=== PATIENT | female | born 1945 | race Caucasian/White ===

== ENCOUNTER 2022-10-15 09:03 | Day surgery (SDC) | payer MEDICARE, SELFPAY ==
[2022-10-15 09:15] VITALS: BP 158/74; PULSE 66; RESP 18; TEMP 36.7; O2SAT 97
--- NOTE | 2022-10-15 09:23 | ANES.PREOP_ITS ---
General Info Date of Service Date Performed: 10/15/22 Height: 5 ft 5 in Weight: 99.79 kg Body Mass Index (BMI): 36.6 Surgical Procedure: Operation Date: 10/15/22 11:40 Proposed Procedure Side Surgeon p Cataract Extraction with IOL Implant Right Roland Reed MD Meds Allergies and Home Medications Allergies Allergy/AdvReac Type Severity Reaction Status Date / Time amoxicillin Allergy Intermediate Skin Rash Unverified 10/13/22 14:52 amlodipine Allergy Unknown Unknown Unverified 10/14/22 12:19 azithromycin Allergy Unknown Unknown Unverified 10/14/22 12:19 gabapentin Allergy Unknown Unknown Unverified 10/14/22 12:19 hydrochlorothiazide Allergy Unknown Unknown Unverified 10/14/22 12:19 milk Allergy Unknown Unknown Unverified 10/14/22 12:19 mirabegron Allergy Unknown Unknown Unverified 10/14/22 12:19 Penicillins Allergy Unknown Unknown Unverified 10/14/22 12:19 Sulfa (Sulfonamide Allergy Unknown Unknown Unverified 10/14/22 12:19 Antibiotics) sulfamethoxazole Allergy Unknown Unknown Unverified 10/14/22 12:19 [From Sulfamethoxazole-Trimethoprim] tramadol Allergy Unverified 10/13/22 14:52 trimethoprim Allergy Unverified 10/13/22 14:52 [From Sulfamethoxazole-Trimethoprim] codeine AdvReac Intermediate Nausea Unverified 10/13/22 14:52 Home Medication Medication Instructions Recorded calcium carbonate 600 mg calcium 600 mg PO DIRECTED 10/13/22 (1,500 mg) tablet (Super Calcium) cetirizine 10 mg tablet 10 mg PO DAILY 10/13/22 fluticasone propionate 50 2 spray intranasal DAILY 10/13/22 mcg/actuation nasal spray,suspension lisinopril 40 mg tablet 40 mg PO DAILY 10/13/22 ropinirole 0.25 mg tablet 25 mg PO DIRECTED 10/13/22 rosuvastatin 5 mg tablet 5 mg PO DAILY 10/13/22 sertraline 50 mg tablet 50 mg PO DAILY 10/13/22 Current Visit Medications: Current Medications Generic Name Dose Route Start Last Admin Trade Name Freq PRN Reason Stop Dose Admin Acetaminophen 1,000 mg 10/15/22 06:00 Acetaminophen 500 Mg Tab PO 11/14/22 05:59 Q4H PRN PRN Balanced Salt Solution 500 ml 10/15/22 06:00 Balanced Salt Soln.-Plus 500 Ml Bag OP 11/14/22 05:59 DIRECTED [facility] Miscellaneous Medication 0 ml 10/15/22 06:00 Prednisolone 1%, Moxifloxacin 0.5%, Nepafenac 0.1% 5ml Btl OD 11/14/22 05:59 DIRECTED [facility] Miscellaneous Medication 0 ml 10/15/22 06:00 Tropicam./Phenyleph. 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 Diverticular disease Essential tremor CAROLANN (generalized anxiety disorder) HLD (hyperlipidemia) Hx of malignant neoplasm of uterine body Hypertensive disorder Insomnia Left sided sciatica Low back pain Neck pain Obesity Pain of right hip joint Piriformis syndrome of right side Prediabetes RLS (restless legs syndrome) Senile hyperkeratosis Spinal stenosis of lumbar region Thoracic back pain Tinnitus of left ear Surgical History Surgical History History of hysteroscopy History of spinal surgery Hx of colonoscopy Hx of hysterectomy Tobacco Smoking/Tobacco Use Status: Never Alcohol Alcohol Intake: never Substance Use Substance use: Never Substance use type: does not use Vital Signs and Lab Results Lab Results Blood Type / Crossmatch: No Data to Display Complete Blood Count: No Data to Display Complete Metabolic Panel: No Data to Display Liver Function Panel: No Data to Display Coagulation Panel: No Data to Display Cardiac Panel: No Data to Display Arterial Blood Gas: No Data to Display Venous Blood Gas: No Data to Display Pancreas Panel: No Data to Display Thyroid Panel: No Data to Display Infectious Disease: No Data to Display Blood Cultures: No Data to Display Toxicology Panel: No Data to Display Anesthesia Assessment and Plan Anesthesia History Personal History: No History of Anesthesia Complications Family History: No Family History of Anesthesia Complications Exercise Tolerance Exercise Tolerance: Metabolic Equivalents>4 Pertinent Negatives Pertinent Negatives: No Symptoms of GERD Cardiac & Pulmonary Exam Cardiac Exam: Normal S1/S2 Heart Sounds Pulmonary Exam: Clear Bilateral Breath Sounds Implantable Cardiac Device Does patient have a Pacemaker or an ICD?: No Airway Exam Known Difficult Airway: No Mallampati Class: 3 Mouth Opening: Normal (> 3cm) Thyromental Distance: Greater than 3 cm Neck Range of Motion: Full ROM Neck Circumference: Normal Teeth Condition: Normal Dentition ASA Classification ASA Score: ASA 2 Emergency Case?: No NPO Status NPO Status: NPO Clears >2 hours, Solids >8 hours Anesthesia Plan Resuscitation Status: Full Code Anesthesia Technique: MAC Anesthesia Airway Planned: Natural Airway Monitors Used: Standard Monitors
[2022-10-15 09:25] VITALS: BMI 36.6
[2022-10-15] MEDS: Tropicam./Phenyleph. (1/2.5%) 5 ML BTL OD ×3 (09:35→09:50)
[2022-10-15] MEDS: Balanced Salt Soln.-PLUS 500 ML BAG OP (10:09)
[2022-10-15] MEDS: Tetracaine 0.5% 4 ML BTL OD (10:10)
[2022-10-15] MEDS: Lidocaine 1% Pres-Free 5 ML VIAL (10:10)
[2022-10-15] MEDS: Duovisc Viscoelastic System EACH 1 EACH (10:11)
[2022-10-15] MEDS: Phenylephrine/Lidocaine (15/10) MG/ML 1 ML VIAL (10:12)
[2022-10-15] MEDS: Povidone-Iodine Ophth 30 ML BTL (10:13)
[2022-10-15 10:31] VITALS: BP 142/70; PULSE 60; RESP 20; TEMP 36.3; O2SAT 97
--- NOTE | 2022-10-15 10:32 | W.PM.DSUDISC ---
Date of service: 10/15/22 Time of Service: 10:32 Discharge Plan Disposition Patient Disposition: Home Discharge Details Attending Provider: Roland Reed Primary Care Provider: Alexa Reece Home Meds and New Rx's Prescriptions: No Action cetirizine 10 mg tablet 10 mg PO DAILY Patient Comments: TAKE ONE TABLET BY MOUTH EVERY DAY calcium carbonate [Super Calcium] 600 mg calcium (1,500 mg) Tablet 600 mg PO DIRECTED ropinirole 0.25 mg tablet 25 mg PO DIRECTED Patient Comments: TAKE ONE TABLET BY MOUTH THREE TIMES A DAY lisinopril 40 mg tablet 40 mg PO DAILY Patient Comments: TAKE ONE TABLET BY MOUTH EVERY DAY fluticasone propionate 50 mcg/actuation spray,suspension 2 spray INTRANASAL DAILY Patient Comments: SPRAY TWO SPRAYS IN EACH NOSTRIL TWICE A DAY sertraline 50 mg tablet 50 mg PO DAILY Patient Comments: TAKE ONE TABLET BY MOUTH EVERY DAY rosuvastatin 5 mg tablet 5 mg PO DAILY Patient Comments: TAKE ONE TABLET BY MOUTH EVERY DAY Discharge Instructions Stand Alone Forms: Post-op Topical Cataract, Isra Fuchs ([facility]) Discharge Orders Discharge Orders: Discharge Order (Routine); Ordered 10/15/22 Ordered By: Roland Reed DS: Diagnosis Discharge Diagnosis (1) Cortical age-related cataract, right eye: Status: Resolved (2) Nuclear age-related cataract, right eye: Status: Resolved
--- NOTE | 2022-10-15 10:33 | W.PM.OP ---
Date of service: 10/15/22 Time of Service: 10:33 Operative Note Operative Note DATE OF PROCEDURE: 10/15/22 PRE-OP DIAGNOSIS: Nuclear/cortical cataract, right eye POST-OP DIAGNOSIS: same PROCEDURE: Cataract extraction using phacoemulsification with intraocular lens implant, right eye SURGEON: Roland Reed ANESTHESIA TYPE: Local By Surgeon and MAC Refer to Anesthesia Record ESTIMATED BLOOD LOSS: 0 PATHOLOGY: none sent COMPLICATIONS: None Patient was transported to: same day Patient's condition: stable Implants: You Clareon [id number] Indications: Progressive decreased vision due to cataract, right eye Procedure Description: CATARACT SURGERY OPERATIVE REPORT PREOPERATIVE DIAGNOSIS: Nuclear/cortical cataract, right eye POSTOPERATIVE DIAGNOSIS: Same OPERATION: Cataract extraction using phacoemulsification with posterior chamber intraocular lens implant, right eye. IOL: IOL Blasting Helper/Model: You Clareon [id number] IOL Power: + 17.5 diopters IOL Serial Number: [id number] Optic Diameter: 6.0mm Haptic/Overall Diameter: 13.0mm PHACO INFO: [employer]urion Vision System with OZil and Active Fluidics Cumulative Dispersed Energy (CDE): 6.99 seconds SURGEON: Roland Reed MD, SOLITARIO ANESTHESIA: Monitored Anesthesia Care (MAC), with local sub-tenon's anesthetic infiltration COMPLICATIONS: None SPECIMENS: None INDICATIONS FOR PROCEDURE: Patient is a 77-year-old lady with history of diminished visual acuity in her right eye secondary to the development of nuclear/cortical cataract. She is significantly symptomatic that she desires cataract surgery and attempt to improve and maximize her vision. The option of cataract surgery was offered to the patient and she wished to proceed. See office notes for detailed information. PROCEDURE: The correct surgical eye was identified and marked as the right eye and the pupil was dilated in the preoperative area using mydriatics and cycloplegics. The dilated pupil size was 6.0 mm. Oral sedation was administered in the form of an Imprimis MKO Melt (midazolam 3mg/ketamine 25mg/ondansetron 2mg). The patient was brought to the operating room where cardiopulmonary monitoring was instituted and surgical time-out was performed, confirming the correct operative eye and IOL power. Topical anesthesia was administered and ophthalmic povidone-iodine 5% was instilled into the conjunctival fornices. The amanda-ocular area was prepped with Betadine 10% solution and draped in the usual sterile fashion for intraocular surgery, including an aperture drape. A Tegaderm transparent film dressing was cut in half and used to cover the lashes and lid margins. Care was taken to sequester the lashes and lid margins under the Tegaderm dressing. A lid speculum was placed between the lids of the operative eye and the Ciara-Manjit operating microscope was maneuvered into position. Lyndsay scissors were then used to make a conjunctival buttonhole approximately 6mm posterior to the limbus in the inferonasal quadrant. Blunt dissection was carried out to expose bare sclera, and a blunt-tipped sub-tenon?s anesthesia cannula was introduced and passed posteriorly along the globe where non-preserved plain lidocaine was injected into posterior sub-Tenon?s space. A sideport knife was used to make a paracentesis port. Intraocular phenylephrine/lidocaine was injected into the anterior chamber. The anterior chamber was then filled with viscoelastic. A keratome knife was used to construct a two--plane clear corneal tunnel extending 2.0mm into clear cornea. A flap was raised on the anterior capsule and capsulorhexis forceps were used to complete a continuous curvilinear capsulorhexis of 5.5 mm. Balanced salt solution was then used to perform cortical cleaving hydrodissection and nuclear hydrodelineation until the lens could be freely rotated within the capsular bag. The lens nucleus was then disassembled and removed within the capsular bag and iris plane using phacoemulsification. Residual cortical material was removed using the I/A handpiece. The posterior capsule was carefully polished to remove as much residual lens epithelial cells as safely possible. The capsular bag was then inflated and the anterior chamber deepened with cohesive viscoelastic. The lens implant described above was inserted into the capsular bag using the You Autonome Injector. A Kuglen hook was used to dial the IOL into position. Residual viscoelastic was then removed first from posterior to the IOL, then from the anterior chamber using the I/A handpiece. The lens implant was noted to center nicely within the capsular bag. The incisions were stromally hydrated, and the anterior chamber was reformed using BSS. Then 0.5cc of moxifloxacin 1.0mg/ml were injected into the capsular bag and anterior chamber. The incisions were checked with a Weck spear and found to be secure. Several drops of ophthalmic povidone-iodine 5% were then applied to the eye followed by two drops of Imprimis combination prednisolone/moxifloxacin/nepafenac solution. The drapes were removed and a clear plastic protective eye shield was placed over the eye. The patient was then returned to Same Day Surgery in stable condition.
--- NOTE | 2022-10-15 10:47 | W.ANESPOSTOP ---
Postoperative Evaluation Date, Time and Location Date Performed: 10/15/22 Time Performed: 10:47 Patient Location: Day Surgery Unit Vital Signs Most Recent Imported Vital Signs: Most Recent Vital Signs Temp Pulse Resp BP Pulse Ox 36.3 C L 60 20 142/70 H 97 10/15/22 10:31 10/15/22 10:31 10/15/22 10:31 10/15/22 10:31 10/15/22 10:31 Pain Score Most Recent Pain Score: Most Recent Pain Score Pain Level 0 10/15/22 10:31 Assessment Mental Status: Awake (Alert & Oriented to Patient Baseline) Airway and Respiratory Function: Patent airway with normal (patient baseline) respiratory exam Cardiovascular Function: Hemodynamically Stable Hydration Status: Adequately Hydrated Nausea & Vomiting: No Nausea or Vomiting Pain: Pt. Denies Any Pain Peripheral Nerve Block: Patient did not receive a nerve block
[2022-10-15 10:54] VITALS: BP 154/61; PULSE 64; RESP 20; TEMP 36.6; O2SAT 97
== END 2022-10-15 11:00 | disposition home or self-care (01) ==
LOC: SUR 09:05
PROVIDERS: PCP Physician Assistant Medical; Visit Provider Ophthalmology
PROC: (CPT 66984; principal; 2022-10-15 11:30)
DX: H25.011 Cortical age-related cataract, right eye (principal); H25.11 Age-related nuclear cataract, right eye
CPT/HCPCS: 66984; V2632

== ENCOUNTER 2022-10-29 12:07 | Day surgery (SDC) | payer MEDICARE, SELFPAY ==
[2022-10-29 12:35] VITALS: BP 164/68; PULSE 70; RESP 18; TEMP 36.3; O2SAT 96
[2022-10-29] MEDS: Tropicam./Phenyleph. (1/2.5%) 5 ML BTL OS ×3 (12:52→13:03)
--- NOTE | 2022-10-29 13:21 | W.ANESPRE ---
General Info Date of Service Date Performed: 10/29/22 Height: 5 ft 5 in Weight: 102.6 kg Body Mass Index (BMI): 37.6 Surgical Procedure: Operation Date: 10/29/22 14:25 Proposed Procedure Side Surgeon p Cataract Extraction with IOL Implant Left Roland Reed MD Meds Allergies and Home Medications Allergies Allergy/AdvReac Type Severity Reaction Status Date / Time amoxicillin Allergy Intermediate Skin Rash Unverified 10/29/22 12:47 amlodipine Allergy Unknown Unknown Unverified 10/29/22 12:47 azithromycin Allergy Unknown Unknown Unverified 10/29/22 12:47 gabapentin Allergy Unknown Unknown Unverified 10/29/22 12:47 hydrochlorothiazide Allergy Unknown Unknown Unverified 10/29/22 12:47 milk Allergy Unknown Unknown Unverified 10/29/22 12:47 mirabegron Allergy Unknown Unknown Unverified 10/29/22 12:47 Penicillins Allergy Unknown Unknown Unverified 10/29/22 12:47 Sulfa (Sulfonamide Allergy Unknown Unknown Unverified 10/29/22 12:47 Antibiotics) sulfamethoxazole Allergy Unknown Unknown Unverified 10/29/22 12:47 [From Sulfamethoxazole-Trimethoprim] tramadol Allergy Unverified 10/29/22 12:47 trimethoprim Allergy Unverified 10/29/22 12:47 [From Sulfamethoxazole-Trimethoprim] codeine AdvReac Intermediate Nausea Unverified 10/29/22 12:47 Home Medication Medication Instructions Recorded calcium carbonate 600 mg calcium 600 mg PO DIRECTED 10/13/22 (1,500 mg) tablet (Super Calcium) cetirizine 10 mg tablet 10 mg PO DAILY 10/13/22 fluticasone propionate 50 2 spray intranasal DAILY 10/13/22 mcg/actuation nasal spray,suspension lisinopril 40 mg tablet 40 mg PO DAILY 10/13/22 ropinirole 0.25 mg tablet 25 mg PO DIRECTED 10/13/22 rosuvastatin 5 mg tablet 5 mg PO DAILY 10/13/22 sertraline 50 mg tablet 50 mg PO DAILY 10/13/22 Current Visit Medications: Current Medications Generic Name Dose Route Start Last Admin Trade Name Freq PRN Reason Stop Dose Admin Acetaminophen 1,000 mg 10/29/22 06:00 Acetaminophen 500 Mg Tab PO 11/28/22 05:59 Q4H PRN PRN Balanced Salt Solution 500 ml 10/29/22 06:00 Balanced Salt Soln.-Plus 500 Ml Bag OP 11/28/22 05:59 DIRECTED [facility] Miscellaneous Medication 0 ml 10/29/22 06:00 Prednisolone 1%, Moxifloxacin 0.5%, Nepafenac 0.1% 5ml Btl OS 11/28/22 05:59 DIRECTED [facility] Miscellaneous Medication 0 ml 10/29/22 06:00 10/29/22 13:03 Tropicam./Phenyleph. 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 Diverticular disease Essential tremor CAROLANN (generalized anxiety disorder) HLD (hyperlipidemia) Hx of malignant neoplasm of uterine body Hypertensive disorder Insomnia Left sided sciatica Low back pain Neck pain Obesity Pain of right hip joint Piriformis syndrome of right side Prediabetes RLS (restless legs syndrome) Senile hyperkeratosis Spinal stenosis of lumbar region Thoracic back pain Tinnitus of left ear Surgical History Surgical History History of hysteroscopy History of spinal surgery Hx of colonoscopy Hx of hysterectomy Tobacco Smoking/Tobacco Use Status: Never Alcohol Alcohol Intake: never Substance Use Substance use: Never Substance use type: does not use Vital Signs and Lab Results Vital Signs Most Recent Vital Signs in EMR: Most Recent Vital Signs Temp Pulse Resp BP Pulse Ox 36.3 C L 70 18 164/68 H 96 10/29/22 12:35 10/29/22 12:35 10/29/22 12:35 10/29/22 12:35 10/29/22 12:35 Lab Results Blood Type / Crossmatch: No Data to Display Complete Blood Count: No Data to Display Complete Metabolic Panel: No Data to Display Liver Function Panel: No Data to Display Coagulation Panel: No Data to Display Cardiac Panel: No Data to Display Arterial Blood Gas: No Data to Display Venous Blood Gas: No Data to Display Pancreas Panel: No Data to Display Thyroid Panel: No Data to Display Infectious Disease: No Data to Display Blood Cultures: No Data to Display Toxicology Panel: No Data to Display Anesthesia Assessment and Plan Anesthesia History Personal History: No History of Anesthesia Complications and Malignant Hyperthermia Family History: No Family History of Anesthesia Complications Exercise Tolerance Exercise Tolerance: Metabolic Equivalents>4 Pertinent Negatives Pertinent Negatives: No Symptoms of GERD Cardiac & Pulmonary Exam Cardiac Exam: Normal S1/S2 Heart Sounds Pulmonary Exam: Clear Bilateral Breath Sounds Implantable Cardiac Device Does patient have a Pacemaker or an ICD?: No Airway Exam Known Difficult Airway: No Mallampati Class: 3 Mouth Opening: Normal (> 3cm) Thyromental Distance: Greater than 3 cm Neck Range of Motion: Full ROM Neck Circumference: Normal Teeth Condition: Normal Dentition ASA Classification ASA Score: ASA 2 Emergency Case?: No NPO Status NPO Status: NPO Clears >2 hours, Solids >8 hours Anesthesia Plan Resuscitation Status: Full Code Anesthesia Technique: MAC Anesthesia Airway Planned: Natural Airway Monitors Used: Standard Monitors
--- NOTE | 2022-10-29 13:34 | W.PREOPHP ---
Assessment and Plan Assessment and plan (1) Cortical age-related cataract, left eye: Status: Acute Assessment and plan: Assessment: Visually significant cataract of the left eye. Plan: Cataract extraction with lens implantation of the left eye. (2) Nuclear age-related cataract, left eye: Status: Acute Assessment and plan: Assessment: Visually significant cataract of the left eye. Plan: Cataract extraction with lens implantation of the left eye. History of Present Illness History of Present Illness Chief Complaint: Progressive decreased vision, left eye Narrative: The patient is a 76-year-old lady with history of diminished visual acuity in both eyes secondary to the development of bilateral nuclear and cortical cataract. She notes decreased vision at both distance and near. She has significant difficulty with glare from driving at night. She has already undergone cataract surgery in the right eye and is doing well postoperatively. She now presents for cataract surgery in the left eye. 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 Diverticular disease Essential tremor CAROLANN (generalized anxiety disorder) HLD (hyperlipidemia) Hx of malignant neoplasm of uterine body Hypertensive disorder Insomnia Left sided sciatica Low back pain Neck pain Obesity Pain of right hip joint Piriformis syndrome of right side Prediabetes RLS (restless legs syndrome) Senile hyperkeratosis Spinal stenosis of lumbar region Thoracic back pain Tinnitus of left ear Surgical History History of hysteroscopy History of spinal surgery Hx of colonoscopy Hx of hysterectomy Social History Smoking/Tobacco Use Status: Never Smoking risk assessment performed?: Yes Alcohol Intake: never Drug use: Never Substance use type: does not use Housing: house Do you feel safe at home: Yes Do you feel safe in your relationship?: Yes Meds Allergies and Home Medications Allergies Allergy/AdvReac Type Severity Reaction Status Date / Time amoxicillin Allergy Intermediate Skin Rash Unverified 10/29/22 12:47 amlodipine Allergy Unknown Unknown Unverified 10/29/22 12:47 azithromycin Allergy Unknown Unknown Unverified 10/29/22 12:47 gabapentin Allergy Unknown Unknown Unverified 10/29/22 12:47 hydrochlorothiazide Allergy Unknown Unknown Unverified 10/29/22 12:47 milk Allergy Unknown Unknown Unverified 10/29/22 12:47 mirabegron Allergy Unknown Unknown Unverified 10/29/22 12:47 Penicillins Allergy Unknown Unknown Unverified 10/29/22 12:47 Sulfa (Sulfonamide Allergy Unknown Unknown Unverified 10/29/22 12:47 Antibiotics) sulfamethoxazole Allergy Unknown Unknown Unverified 10/29/22 12:47 [From Sulfamethoxazole-Trimethoprim] tramadol Allergy Unverified 10/29/22 12:47 trimethoprim Allergy Unverified 10/29/22 12:47 [From Sulfamethoxazole-Trimethoprim] codeine AdvReac Intermediate Nausea Unverified 10/29/22 12:47 Home Medications Medication Instructions Recorded Confirmed Type calcium carbonate 600 mg calcium 600 mg PO DIRECTED 10/13/22 10/29/22 History (1,500 mg) tablet (Super Calcium) cetirizine 10 mg tablet 10 mg PO DAILY 10/13/22 10/29/22 History fluticasone propionate 50 2 spray intranasal DAILY 10/13/22 10/29/22 History mcg/actuation nasal spray,suspension lisinopril 40 mg tablet 40 mg PO DAILY 10/13/22 10/29/22 History ropinirole 0.25 mg tablet 25 mg PO DIRECTED 10/13/22 10/29/22 History rosuvastatin 5 mg tablet 5 mg PO DAILY 10/13/22 10/29/22 History sertraline 50 mg tablet 50 mg PO DAILY 10/13/22 10/29/22 History Exam Eyes Other: Most recent ocular examination is significant for uncorrected visual acuity of 20/25 OD, corrected visual acuity 20/25 OS. Extract motility is normal. Intraocular pressure is 16 OD 15 OS. Slit-lamp examination is significant for a well-positioned PCIOL OD with clear posterior capsule. Mild cortical cataract with moderate nuclear opacification in the left eye. Funduscopic examination shows disc cupping of 0.25 OU with normal vessels, macula, peripheral retina and vitreous. Resp Auscultation: clear to auscultation bilaterally Cardio Rate: regular rate Rhythm: regular rhythm Results Last Vital Signs Temp 36.3 C L 10/29/22 12:35 Pulse 70 10/29/22 12:35 Resp 18 10/29/22 12:35 BP 164/68 H 10/29/22 12:35 Pulse Ox 96 10/29/22 12:35
[2022-10-29 13:56] VITALS: BMI 37.6
[2022-10-29] MEDS: Balanced Salt Soln.-PLUS 500 ML BAG OP (14:01)
[2022-10-29] MEDS: Duovisc Viscoelastic System EACH 1 EACH (14:03)
[2022-10-29] MEDS: Lidocaine 1% Pres-Free 5 ML VIAL (14:04)
[2022-10-29] MEDS: Phenylephrine/Lidocaine (15/10) MG/ML 1 ML VIAL (14:05)
[2022-10-29] MEDS: Povidone-Iodine Ophth 30 ML BTL (14:06)
[2022-10-29 14:12] VITALS: BP 153/66; PULSE 76; RESP 16; TEMP 36.4; O2SAT 96
--- NOTE | 2022-10-29 14:12 | W.PM.DSUDISC ---
Date of service: 10/29/22 Time of Service: 14:12 Discharge Plan Disposition Patient Disposition: Home Discharge Details Attending Provider: Roland Reed Primary Care Provider: Alexa Reece Home Meds and New Rx's Prescriptions: No Action cetirizine 10 mg tablet 10 mg PO DAILY Patient Comments: TAKE ONE TABLET BY MOUTH EVERY DAY calcium carbonate [Super Calcium] 600 mg calcium (1,500 mg) Tablet 600 mg PO DIRECTED ropinirole 0.25 mg tablet 25 mg PO DIRECTED Patient Comments: TAKE ONE TABLET BY MOUTH THREE TIMES A DAY lisinopril 40 mg tablet 40 mg PO DAILY Patient Comments: TAKE ONE TABLET BY MOUTH EVERY DAY fluticasone propionate 50 mcg/actuation spray,suspension 2 spray INTRANASAL DAILY Patient Comments: SPRAY TWO SPRAYS IN EACH NOSTRIL TWICE A DAY sertraline 50 mg tablet 50 mg PO DAILY Patient Comments: TAKE ONE TABLET BY MOUTH EVERY DAY rosuvastatin 5 mg tablet 5 mg PO DAILY Patient Comments: TAKE ONE TABLET BY MOUTH EVERY DAY Discharge Instructions Stand Alone Forms: Post-op Topical Cataract, Isra Fuchs ([facility]) Discharge Orders Discharge Orders: Discharge Order (Routine); Ordered 10/29/22 Ordered By: Roland Reed DS: Diagnosis Discharge Diagnosis (1) Cortical age-related cataract, left eye: Status: Resolved (2) Nuclear age-related cataract, left eye: Status: Resolved
--- NOTE | 2022-10-29 14:13 | ROE_ITS ---
Date of service: 10/29/22 Time of Service: 14:13 Operative Note Operative Note DATE OF PROCEDURE: 10/29/22 PRE-OP DIAGNOSIS: Nuclear/cortical cataract, left eye POST-OP DIAGNOSIS: same PROCEDURE: Cataract extraction using phacoemulsification with intraocular lens implant, left eye SURGEON: Roland Reed ANESTHESIA TYPE: Local By Surgeon and MAC Refer to Anesthesia Record PATHOLOGY: none sent COMPLICATIONS: None Patient was transported to: same day Patient's condition: stable Implants: You Clareon [id number] Indications: Progressive decreased vision due to cataract, left eye Procedure Description: CATARACT SURGERY OPERATIVE REPORT PREOPERATIVE DIAGNOSIS: Nuclear/cortical cataract, left eye POSTOPERATIVE DIAGNOSIS: Same OPERATION: Cataract extraction using phacoemulsification with posterior chamber intraocular lens implant, left eye. IOL: IOL Director Of Diversity And Inclusion/Model: You Clareon [id number] IOL Power: +18.0 diopters IOL Serial Number: [id number] Optic Diameter: 6.0mm Haptic/Overall Diameter: 13.0mm PHACO INFO: You[employer]ior Solar Solutionurion Vision System with OZil and Active Fluidics Cumulative Dispersed Energy (CDE): 3.71 seconds SURGEON: Roland Reed MD, SOLITARIO ANESTHESIA: Monitored Anesthesia Care (MAC), with local sub-tenon's anesthetic infiltration COMPLICATIONS: None SPECIMENS: None INDICATIONS FOR PROCEDURE: The patient is a 77-year old ladey with history of diminished visual acuity in both eyes secondary to bilateral nuclear/cortical cataract. She has already undergone ce/iol in the right eye and is doing well post operatively. She now presents for cataract surgery in the left eye. See offfice notes for detailed information. PROCEDURE: The correct surgical eye was identified and marked as the left eye and the pupil was dilated in the preoperative area using mydriatics and cycloplegics. The dilated pupil size was 7.0 mm. Oral sedation was administered in the form of an Imprimis MKO Melt (midazolam 3mg/ketamine 25mg/ondansetron 2mg). The patient elected to proceed without oral sedation. The patient was brought to the operating room where cardiopulmonary monitoring was instituted and surgical time-out was performed, confirming the correct operative eye and IOL power. Topical anesthesia was administered and ophthalmic povidone-iodine 5% was instilled into the conjunctival fornices. The amanda-ocular area was prepped with Betadine 10% solution and draped in the usual sterile fashion for intraocular surgery, including an aperture drape. A Tegaderm transparent film dressing was cut in half and used to cover the lashes and lid margins. Care was taken to sequester the lashes and lid margins under the Tegaderm dressing. A lid speculum was placed between the lids of the operative eye and the You LuxOR Revalia operating microscope was maneuvered into position. Lyndsay scissors were then used to make a conjunctival buttonhole approximately 6mm posterior to the limbus in the inferonasal quadrant. Blunt dissection was carried out to expose bare sclera, and a blunt-tipped sub-tenon?s anesthesia cannula was introduced and passed posteriorly along the globe where non- preserved plain lidocaine was injected into posterior sub-Tenon?s space. A sideport knife was used to make a paracentesis port. Intraocular phenylephrine/lidocaine was injected into the anterior chamber. The anterior chamber was then filled with viscoelastic. A keratome knife was used construct a two-plane clear corneal tunnel extending 2.0mm into clear cornea. A flap was raised on the anterior capsule and capsulorhexis forceps were used to complete a continuous curvilinear capsulorhexis of 5.0mm. Balanced salt solution was then used to perform cortical cleaving hydrodissection and nuclear hydrodelineation until the lens could be freely rotated within the capsular bag. The lens nucleus was then disassembled and removed within the capsular bag and iris plane using phacoemulsification. Residual cortical material was removed using the irrigation/aspiration handpiece. The posterior capsule was carefully polished to remove as much residual lens epithelial cells as safely possible. The capsular bag was then inflated and the anterior chamber deepened with viscoelastic. The lens implant described above was inserted into the capsular bag using the You Autonome Injector. A Kuglen hook was used to dial the IOL into position. Residual viscoelastic was then removed first from posterior to the IOL, then from the anterior chamber using the I/A handpiece. The lens implant was noted to center nicely within the capsular bag. The incisions were stromally hydrated, and the anterior chamber was reformed using BSS. Then 0.5cc of moxifloxacin 1.0mg/ml were injected into the capsular bag and anterior chamber. The incisions were checked with a Weck spear and found to be secure. Several drops of ophthalmic povidone-iodine 5% were then applied to the eye followed by two drops of Imprimis combination prednisolone/moxifloxacin/nepafenac solution. The drapes were removed and a clear plastic protective eye shield was placed over the eye. The patient was then returned to [facility] in stable condition.
--- NOTE | 2022-10-29 14:26 | W.ANESPOSTOP ---
Postoperative Evaluation Date, Time and Location Date Performed: 10/29/22 Time Performed: 14:14 Patient Location: Day Surgery Unit Vital Signs Most Recent Imported Vital Signs: Most Recent Vital Signs Temp Pulse Resp BP Pulse Ox 36.4 C L 76 16 153/66 H 96 10/29/22 14:12 10/29/22 14:12 10/29/22 14:12 10/29/22 14:12 10/29/22 14:12 Pain Score Most Recent Pain Score: Most Recent Pain Score Pain Level 0 10/29/22 14:12 Assessment Mental Status: Awake (Alert & Oriented to Patient Baseline) Airway and Respiratory Function: Patent airway with normal (patient baseline) respiratory exam Cardiovascular Function: Hemodynamically Stable Hydration Status: Adequately Hydrated Nausea & Vomiting: No Nausea or Vomiting Pain: Pt. Denies Any Pain Peripheral Nerve Block: Patient did not receive a nerve block
[2022-10-29 14:34] VITALS: BP 161/74; PULSE 71; RESP 16; TEMP 36.1; O2SAT 96
== END 2022-10-29 14:45 | disposition home or self-care (01) ==
LOC: SUR 12:08
PROVIDERS: PCP Physician Assistant Medical; Visit Provider Ophthalmology
PROC: (CPT 66984; principal; 2022-10-29 14:15)
DX: H25.012 Cortical age-related cataract, left eye (principal); H25.12 Age-related nuclear cataract, left eye; Z98.41 Cataract extraction status, right eye
CPT/HCPCS: 66984; V2632